=== PATIENT | male | born 1995 | race Caucasian/White ===

== ENCOUNTER 2016-06-20 20:12 | Emergency (ER) | payer OTHER ==
[~2016-06-20] VITALS: Ht 185.4 cm; Wt 93.0 kg
--- NOTE | 2016-06-20 20:58 | ED GI/GU/ABDOMINAL COMPLAINT ---
History of Present Illness General Chief Complaint: Nausea, Vomiting, Diarrhea Stated Complaint: V/D/N WEAKNESS Source: patient Exam Limitations: no limitations Vital Signs & Intake/Output Vital Signs & Intake/Output Vital Signs Date Time Temp Pulse Resp B/P Pulse O2 O2 Flow FiO2 Ox Delivery Rate 06/20 2250 100.2 93 16 123/56 99 Room Air 06/208 100.6 83 16 130/58 97 Room Air 06/20 2020 100.0 118 18 129/65 100 Room Air ED Intake and Output 06/21 0000 06/20 1200 Intake Total 2000 Output Total Balance 1999 Intake, IV 1999 Patient 205 lb Weight Allergies Coded Allergies: NO KNOWN ALLERGIES (06/20/16) Reconcile Medications Dicyclomine Hydrochloride (Bentyl) 10 MG CAPSULE 2 CAP PO TID abd pain Ondansetron (Zofran Odt) 4 MG TAB.RAPDIS 1 TAB SL TID nausea Triage Note: PT TO TRIAGE WITH C/O N/Vx7/Dx10 AND MIDDLE ABD PAIN SINCE 3PM. [facility] PT C/O TINGLING AND NUMBNESS TO BILAT HANDS AND CALFS STARTED 10MIN INSTALLERS MECHANICAL. NO OTHER COMPLAINTS. TEMP 100.0 IN TRIAGE. VSS. BG 94 IN TRIAGE. Triage Nurses Notes Reviewed? yes Onset: Abrupt Duration: hour(s):, constant, continues in ED Timing: recent history HPI: 21-year-old male comes into emergency room with sudden onset nausea vomiting and diarrhea that began earlier today. Patient reports that he needed to diner earlier. Symptoms began a few hours after. Patient has vomited multiple times and had multiple episodes of diarrhea. Some general abdominal cramping. Associated fever chills. Denies any upper rest or symptoms such as runny nose cough congestion. (JACI MARTINEZ) Past History Travel History Traveled to [place] past 21 day No Medical History Any Pertinent Medical History? see below for history Surgical History Surgical History: non-contributory Psychosocial History What is your primary language [place] Tobacco Use: Never used Illicit Drug Use: denies illicit drug use Family History Hx Contributory? No (JACI MARTINEZ) Review of Systems Review of Systems Constitutional: Reports: see HPI. EENTM: Reports: no symptoms. Respiratory: Reports: no symptoms. Cardiovascular: Reports: no symptoms. GI: Reports: see HPI. Genitourinary: Reports: no symptoms. Musculoskeletal: Reports: no symptoms. Skin: Reports: no symptoms. Neurological/Psychological: Reports: no symptoms. Hematologic/Endocrine: Reports: no symptoms. Immunologic/Allergic: Reports: no symptoms. All Other Systems: Reviewed and Negative (JACI MARTINEZ) Physical Exam Physical Exam General Appearance: well developed/nourished, alert, mild distress Head: atraumatic, normal appearance Eyes: Bilateral: normal appearance. Ears, Nose, Throat, Mouth: hearing grossly normal, moist mucous membrane Neck: normal inspection, full range of motion Respiratory: normal breath sounds, no respiratory distress Cardiovascular: regular rate/rhythm Gastrointestinal: soft, non-tender Back: normal inspection Extremities: normal range of motion Neurologic/Psych: awake, alert, oriented x 3, normal gait, normal mood/affect Skin: intact, normal color Core Measures ACS in differential dx? No Severe Sepsis Present: No Septic Shock Present: No (JACI MARTINEZ) Progress Differential Diagnosis: appendicitis, biliary colic, bowel obstruction, cholecystitis, diverticulitis, gastritis, hepatitis, orchitis, pancreatitis, perforated viscous, UTI/pyelo Plan of Care: Orders Procedure Date/time Status LIPASE 06/20 2055 Complete COMPREHENSIVE METABOLIC PANEL 06/20 2055 Complete CBC WITHOUT DIFFERENTIAL 06/20 2055 Complete RAPID VIRAL INFLUENZA A 06/20 2040 Complete Laboratory Tests 06/20/162113: Anion Gap 19 H, Estimated GFR > 60, BUN/Creatinine Ratio 15.0, Glucose 108 H, Calcium 10.4 H, Total Bilirubin 1.7 H, AST 23, ALT 35, Alkaline Phosphatase 71 , Total Protein 8.3 H, Albumin 5.1 H, Globulin 3.2, Albumin/Globulin Ratio 1.6 , Lipase 98, CBC w Diff NO MAN DIFF REQ, RBC 5.66, MCV 87.5, MCH 30.3, RDW 12.5, MPV 9.7, Gran % 81.7 H, Lymphocytes % 7.8 L, Monocytes % 10.0 H, Eosinophils % 0.5, Basophils % 0 L, Absolute Granulocytes 5.4, Absolute Lymphocytes 0.5 L, Absolute Monocytes 0.7 H, Absolute Eosinophils 0, Absolute Basophils 0, PUBS MCHC 34.6 Microbiology 06/20 2045 NASOPHARYN: Influenza Virus A & B Rapid Smear - COMP Initial ED EKG: none Comments: Patient clinically looks well. Nontoxic-appearing. In no apparent distress. Patient feels significantly better after IV medications. Follow-up with primary care doctor. Return if any concerns worsening symptoms. Drink plenty of fluids at home. (JACI MARTINEZ) Departure Departure Disposition: HOME OR SELF CARE Condition: Stable Clinical Impression Primary Impression: Gastroenteritis Referrals: SAMEERA HERNANDEZ,JOHNY Rangel (PCP/Family) Additional Instructions: Take Bentyl and Zofran ODT as prescribed. Take Motrin for fever and chills body aches. Rest. Drink plenty fluids. Return if any other concerns worsening symptoms. Please go over all results of today's visit with your primary care doctor. Contact your primary care doctor to let them know you were here in the emergency room. There may be nonspecific findings which may not be related to your visit today here in the emergency room but may require further evaluation and chronic monitoring by your primary care doctor. If you had a laceration today the chance of foreign body always remains. You should follow-up with your primary care doctor for recheck in 3-5 days for a wound check. If you had an x-ray done there is a chance that a fracture could have been missed on initial read and you should follow-up with your primary care doctor for repeat x-rays if symptoms persist. If your blood pressure was elevated here in the emergency room please have rechecked by her primary care doctor within the next 48 hours by your primary care doctor. If you were prescribed a narcotic here in the emergency room or any type of controlled substances you're not allowed to drive while taking this medication or operate any type of heavy machinery. Narcotics can make you feel lightheaded dizziness nausea and can cause constipation. You may need to waste picker a stool softener. Thank you for choosing [facility] emergency room. Please return to the emergency room immediately if you have any other concerns worsening of symptoms. Departure Forms: Customer Survey General Discharge Information Prescriptions: Current Visit Scripts Dicyclomine Hydrochloride (Bentyl) 2 CAP PO TID #30 CAP Ondansetron (Zofran Odt) 1 TAB SL TID #10 TAB (JACI MARTINEZ) PA/ACT TUTOR Co-Sign Statement Statement: ED Attending supervision documentation- [] I saw and evaluated the patient. I have also reviewed all the pertinent lab results and diagnostic results. I agree with the findings and the plan of care as documented in the PA's/ACT TUTOR's documentation. [X] I have reviewed the ED Record and agree with the PA's/ACT TUTOR's documentation. [] Additions or exceptions (if any) to the PAs/ACT TUTOR's note and plan are summarized below: [] (WANDA HERNANDEZ,JONY)
[2016-06-20 21:48] LABS: ABSOLUTE BASOPHIL COUNT 0 /CUMM (0.0-0.2); ABSOLUTE EOSINOPHIL COUNT 0 /CUMM (0.0-0.7); ABSOLUTE GRANULOCYTE CT 5.4 /CUMM (1.4-6.5); ABSOLUTE LYMPH COUNT 0.5 /CUMM (1.2-3.4); ABSOLUTE MONOCYTE COUNT 0.7 /CUMM (0.10-0.60); BASOPHIL % 0 % (0.0-2.0); EOSINOPHIL % 0.5 % (0-5); GRANULOCYTE % 81.7 % (42.2-75.2); HEMATOCRIT 49.5 % (42-52); MEAN CORPUSCULAR HGB 30.3 PG (27.0-31.0); MEAN CORPUSCULAR HGB CONC 34.6 G/DL (33.0-37.0); MEAN CORPUSCULAR VOLUME 87.5 FL (80.0-94.0); MEAN PLATELET VOLUME 9.7 FL (7.4-10.4); PLATELET COUNT 255 /CUMM (130-400); RBC DISTRIBUTION WIDTH 12.5 % (11.5-14.5); RED BLOOD CELL CT 5.66 /CUMM (4.70-6.10); WHITE BLOOD CELL COUNT 6.6 /CUMM (4.8-10.8)
[2016-06-20] MEDS ORDERED: BENTYL10 M1 PO (22:05)
[2016-06-20] MEDS ORDERED: ZOFRAN ODT4 M1 SL (22:05)
[2016-06-20 22:50] VITALS: BP 123/56
== END 2016-06-20 22:51 ==
LOC: ERH 20:12
PROVIDERS: Physician Assistant Medical
DX: K52.9 Noninfective gastroenteritis and colitis, unspecified (principal)
CPT/HCPCS: 87804; 87804-59; 96361; 96372; 96374; 96375; J0500; J1885; J2405